=== PATIENT | male | born 1975 | race Caucasian/White ===

== ENCOUNTER 2025-06-04 11:06 | Day surgery (SDC) | payer OTHER ==
[2025-05-28 08:19] VITALS: BMI 31.8
[2025-06-04] MEDS ORDERED: Lidocaine 1% PF 5 ML VIAL ONE (12:36)
[2025-06-04] MEDS ORDERED: PROPOFOL 40 ML ONE ×2 (12:36→12:50)
[2025-06-04] MEDS ORDERED: PROPOFOL 20 ML ONE ×2 (13:06→13:22)
== END 2025-06-04 14:33 | disposition home or self-care (01) ==
LOC: CSHSDC 11:06
PROVIDERS: ATTEND Surgery
PROC: 0DBL8ZZ Excision of Transverse Colon, Via Natural or Artificial Opening Endoscopic (ICD-10-PCS; principal; 2025-06-04)
PROC: 0DBN8ZZ Excision of Sigmoid Colon, Via Natural or Artificial Opening Endoscopic (ICD-10-PCS; principal; 2025-06-04)
DX: Z12.11 Encounter for screening for malignant neoplasm of colon (principal); D12.5 Benign neoplasm of sigmoid colon; K63.5 Polyp of colon; K21.9 Gastro-esophageal reflux disease without esophagitis; Z87.891 Personal history of nicotine dependence; Z79.899 Other long term (current) drug therapy
CPT/HCPCS: 88305; J2704